=== PATIENT | female | born 1960 | race Caucasian/White ===

== ENCOUNTER → 2016-10-19 09:15 | Outpatient (CLI) | payer MEDICAID ==
[2016-01-02 14:58] VITALS: BMI 47.3
[~2016-10-19 09:15] MED LIST: CARAFATE1 G PO; ELIQUIS2.5 MG PO; REQUIP1 MG PO
== END | disposition home or self-care (01) ==
LOC: D.RAD 09:15
DX: R11.0 Nausea (principal); R10.13 Epigastric pain